=== PATIENT | male | born 1965 | race Caucasian/White ===

== ENCOUNTER 2017-02-19 09:07 | Emergency (ER) | payer BC ==
[2017-02-19] MEDS ORDERED: Thiamine 200 MG/2 ML MDV IVPUSH ONE (09:32)
[2017-02-19] MEDS ORDERED: LORazepam 2 MG/ML MDV IVPUSH ONE (09:32)
[2017-02-19] MEDS ORDERED: Sodium Chloride 0.9% 2,000 ML IV ONE (09:32)
[2017-02-19] MEDS: LORazepam 2 MG/ML MDV ONE ×2 (09:32→09:38)
--- NOTE | 2017-02-19 09:40 | EDM.PDOC ---
ED HPI GENERAL MEDICAL PROBLEM - General Chief Complaint: Flank Pain Stated Complaint: Alcohol withdrawal Time Seen by Provider: 02/19/17 09:50 Source of Information: Reports: Patient History Limitations: Reports: No limitations - History of Present Illness INITIAL COMMENTS - FREE TEXT/NARRATIVE: HISTORY AND PHYSICAL: History of present illness: [51-year-old male with a history of alcoholism and plaque psoriasis now trying to stop drinking and having symptoms of withdrawal. present the patient states that he had several episodes of severe shaking last night but he did not lose consciousness or have altered mental status. Patient is still shaky.] Denies headache chest pain shortness of breath abdominal pain. Her white patient is not confused nor has he been Review of systems: As per history of present illness and below otherwise all systems reviewed and negative. Past medical history: As per history of present illness and as reviewed below otherwise noncontributory. Surgical history: As per history of present illness and as reviewed below otherwise noncontributory. Social history: No reported history of drug or alcohol abuse. Family history: As per history of present illness and as reviewed below otherwise noncontributory. Physical exam: Patient alert and communicative and cooperative, mildly tremulous HEENT: Atraumatic, normocephalic, pupils reactive, negative for conjunctival pallor or scleral icterus, mucous membranes moist, throat clear, neck supple, nontender, trachea midline. Lungs: Clear to auscultation, breath sounds equal bilaterally, chest nontender. Heart: S1S2, regular, negative for clicks, rubs, or JVD. Abdomen: Soft, nondistended, nontender. Negative for masses or hepatosplenomegaly. Negative for costovertebral tenderness. Pelvis: Stable nontender. Genitourinary: Deferred. Rectal: Deferred. Extremities: Atraumatic, negative for cords or calf pain. Neurovascular unremarkable. Neuro: Awake, alert, oriented. Cranial nerves II through XII unremarkable. Cerebellum unremarkable. Motor and sensory unremarkable throughout. Exam nonfocal. Diagnostics: [EKG with sinus tachycardia at 111 normal axis no STEMI Therapeutics: [] Impression: [] Plan: [Signs and symptoms consistent with early alcohol withdrawal in a known alcoholic who is trying to stop drinking. Labs pending to rule out alcoholic ketoacidosis. Patient being hydrated. Thiamine supplemented. Workup pending. Patient has not suicidal or homicidal has not taken an overdose nor committed any self injury If patient improves and becomes] stable for outpatient followup will refer to available outpatient alcohol treatment centers. Patient was be directed followup with his primary care for oversight of his withdrawal treatment and continued care. Definitive disposition and diagnosis as appropriate pending reevaluation and review of above. Right Flank Pain Score (Numeric/FACES): 9 - Related Data Allergies Allergy/AdvReac Type Severity Reaction Status Date / Time cefdinir Allergy Hives Verified 02/19/17 09:47 Home Meds: Home Meds Valsartan/Hydrochlorothiazide [Valsartan-Hctz 160-12.5 mg Tab] 1 tab PO DAILY [History] ED ROS GENERAL - Review of Systems Review Of Systems: See Below (per history of present illness) ED EXAM, GENERAL - Physical Exam Exam: See Below (per history of present illness) Course - Vital Signs Last Recorded V/S: Last Vital Signs Temp 37.2 C 02/19/17 09:43 Pulse 138 H 02/19/17 09:43 Resp 18 02/19/17 09:43 BP 112/91 H 02/19/17 09:43 Pulse Ox 96 02/19/17 09:43 - Orders/Labs/Meds Orders: Active Orders 24 hr Category Date Time Status EKG Documentation Completion [RC] STAT Care 02/19/17 09:32 Active DRUG SCREEN, URINE [URCHEM] Stat Lab 02/19/17 09:32 Uncollected Sodium Chloride 0.9% [Normal Saline] 2,000 ml Med 02/19/17 09:32 Active IV .Bolus Peripheral IV Insertion Adult [OM.PC] Stat Oth 02/19/17 09:32 Ordered Medication Orders Sodium Chloride (Normal Saline) 2,000 mls @ 999 mls/hr IV .Bolus ONE Stop: 02/19/17 11:32 Last Admin: 02/19/17 09:38 Dose: 999 mls/hr Labs: Laboratory Tests 02/19/17 02/19/17 Range/Units 09:20 09:20 WBC 8.44 (4.0-11.0) K/uL RBC 4.16 L (4.50-5.90) M/uL Hgb 13.3 (13.0-17.0) g/dL Hct 40.4 (38.0-50.0) % MCV 97.1 (80.0-98.0) fL MCH 32.0 (27.0-32.0) pg MCHC 32.9 (31.0-37.0) g/dL RDW Std Deviation 53.4 (28.0-62.0) fl RDW Coeff of Luis E 15 (11.0-15.0) % Plt Count 83 L (150-400) K/uL MPV 10.60 (7.40-12.00) fL Neut % (Auto) 69.2 (48.0-80.0) % Lymph % (Auto) 18.8 (16.0-40.0) % Ware % (Auto) 11.3 (0.0-15.0) % Eos % (Auto) 0.6 (0.0-7.0) % Baso % (Auto) 0.1 (0.0-1.5) % Neut # (Auto) 5.8 H (1.4-5.7) K/uL Lymph # (Auto) 1.6 (0.6-2.4) K/uL Ware # (Auto) 1.0 H (0.0-0.8) K/uL Eos # (Auto) 0.1 (0.0-0.7) K/uL Baso # (Auto) 0.0 (0.0-0.1) K/uL Nucleated RBC % 0.0 /100WBC Nucleated RBCs # 0 K/uL Sodium 138 (136-146) mmol/L Potassium 3.1 L (3.5-5.1) mmol/L Chloride 97 L (98-110) mmol/L Carbon Dioxide 26 (21-31) mmol/L BUN 12 (6.0-23.0) mg/dL Creatinine 0.8 (0.6-1.5) mg/dL Est Cr Clr Drug Dosing 91.11 mL/min Estimated GFR (MDRD) > 60.0 ml/min Glucose 92 (60-110) mg/dL Calcium 9.6 (8.8-10.8) mg/dL Total Bilirubin 1.7 H (0.1-1.5) mg/dL AST 63 H (5-40) IU/L ALT 46 (8-54) IU/L Alkaline Phosphatase 118 (40-150) Total Protein 7.4 (6.0-8.0) g/dL Albumin 3.9 (3.5-5.0) g/dL Globulin 3.5 (2.0-3.5) g/dL Albumin/Globulin Ratio 1.1 L (1.3-2.8) Meds: Medications Generic Name Dose Route Start Last Admin Trade Name Freq PRN Reason Stop Dose Admin Sodium Chloride 2,000 mls @ 999 mls/hr 02/19/17 09:32 02/19/17 09:38 Normal Saline IV 02/19/17 11:32 999 mls/hr .Bolus ONE Administration Discontinued Medications Generic Name Dose Route Start Last Admin Trade Name Freq PRN Reason Stop Dose Admin Chlordiazepoxide HCl 50 mg 02/19/17 11:07 Librium PO 02/19/17 11:08 ONETIME ONE Lorazepam Confirm 02/19/17 09:26 02/19/17 09:38 Ativan Administered 02/19/17 09:27 Not Given Dose 2 mg .ROUTE .STK-MED ONE Lorazepam 1 mg 02/19/17 09:32 02/19/17 09:37 Ativan IVPUSH 02/19/17 09:33 1 mg ONETIME ONE Administration Potassium Chloride 40 meq 02/19/17 11:06 Klor-Con M20 PO 02/19/17 11:07 ONETIME ONE Thiamine HCl 100 mg 02/19/17 09:32 02/19/17 09:43 Vitamin B-1 IVPUSH 02/19/17 09:33 100 mg ONETIME ONE Administration Departure - Departure Time of Disposition: 11:11 Disposition: Home, Self-Care 01 Condition: good Clinical Impression: Alcohol withdrawal, Thrombocytopenia, Hypokalemia, Hyperbilirubinemia Referrals: Mj Covington MD [Primary Care Provider] - Forms: ED Department Discharge Additional Instructions: You're experiencing symptoms of alcohol withdrawal. We've given you a dose of Ativan and a dose of Librium to help control the symptoms. He did not have any abnormalities of the blood workup which require immediate treatment other than the hydration that you've received and thiamine administration. Followup with the outpatient alcohol withdrawal treatment center of your choice. All of with your in one day to discuss your low platelets which is called thrombocytopenia. Your platelet count was 83 today. This is low but does not require acute treatment your potassium was slightly low at 3.1 and you've been given using a single by mouth dose of supplemental potassium the aware that your bilirubin is slightly elevated at 1.7 and would recommend a followup with your Dr. for reevaluation of this and to discuss further workup and treatment as needed. - My Orders Last 24 Hours: My Active Orders 02/19/17 09:32 EKG Documentation Completion [RC] STAT DRUG SCREEN, URINE [URCHEM] Stat Sodium Chloride 0.9% [Normal Saline] 2,000 ml IV .Bolus Peripheral IV Insertion Adult [OM.PC] Stat - Assessment/Plan Last 24 Hours: My Active Orders 02/19/17 09:32 EKG Documentation Completion [RC] STAT DRUG SCREEN, URINE [URCHEM] Stat Sodium Chloride 0.9% [Normal Saline] 2,000 ml IV .Bolus Peripheral IV Insertion Adult [OM.PC] Stat
[2017-02-19 10:25] LABS: CHLORIDE,CL 97 mmol/L (98-110); SODIUM,NA 138 mmol/L (136-146)
[2017-02-19] MEDS ORDERED: Potassium Chloride 20 MEQ Tab.ER PO ONE (11:06)
[2017-02-19] MEDS ORDERED: chlordiazePOXIDE 10 MG Cap PO ONE (11:07)
[2017-02-19 11:50] VITALS: BP 128/78
== END 2017-02-19 11:45 | disposition home or self-care (01) ==
LOC: MW.ED 09:07
DX: F10.239 Alcohol dependence with withdrawal, unspecified (principal); D69.6 Thrombocytopenia, unspecified; E87.6 Hypokalemia; E80.6 Other disorders of bilirubin metabolism; Z88.8 Allergy status to other drugs, medicaments and biological substances; Z79.899 Other long term (current) drug therapy
CPT/HCPCS: 36415; 80053; 85025; 93005; 96361; 96374; 96375; 99285; A9270; J2060; J3411; J7040; 99284

== ENCOUNTER → 2017-03-11 | Outpatient (CLI) | payer BC ==
--- NOTE | 2017-03-15 16:44 | CR ---
EXAM DATE: 03/11/17 PATIENT'S AGE: 51 Patient: KEILA HAINES Facility: [facility] Site . Site : [id number] Study: XRay-Chest [id number]/[id number] 2:47:33 PM Ordering Physician: Nadya Barker Final Report: HISTORY: COPD. Bronchitis. Comparison: 11/28/2016. Technique: Chest, 2 views. Findings: Heart size and pulmonary vasculature are within normal limits. The lungs are hyperinflated. There is no acute airspace disease. The central airway is normal. Lateral/posterior costophrenic sulci are sharp. Impression: Lungs are hyperinflated. There is no acute airspace disease. Dictated by Lefty Fish MD @ Mar 15 2017 2:57PM Signed by: Lefty Fish MD @03/15/2017 2:59:15 PM (Electronic Signature) Report Signed by Proxy. MTDD
== END ==
LOC: MW.CHIM 14:40
PROVIDERS: ATTEND Internal Medicine
DX: J44.9 Chronic obstructive pulmonary disease, unspecified (principal)
CPT/HCPCS: 36415; 71020; 71020-26; 85025